=== PATIENT | female | born 1960 | race Caucasian/White ===

== ENCOUNTER → 2024-03-28 | Outpatient (CLI) | payer BC ==
--- NOTE | 2024-05-09 14:40 | WWHP ---
[facility] - HISTORY AND PHYSICAL The patient is a 63-year-old female seen in consultation for Dr. Hayden regarding left bloody nipple discharge. She had a bilateral mammogram performed on 06/09/2023 which was BI-RADS2. She had a left breast ultrasound on 02/12/2024 which showed some mild left duct ectasia. She states that approximately 2 weeks ago, she awoke with swelling of the left breast and some bloody nipple discharge. She had several courses of antibiotics. The swelling resolved; however, the nipple discharge continued. She states it occurs in the mornings and was initially red and is now dark in color. She has never had any surgery on her breasts. She denies any lumps, masses, or nodules of concern on either breast. CAFFEINE: 2 cups per day. NICOTINE: Negative. CHOCOLATE: Weekly. CONTROL PILLS/HORMONES: She used control pills for approximately 5 years in the remote past. FAMILY HISTORY: Mother, lung cancer, smoker. Sister, lung cancer, smoker. ENDOCRINE: Menarche, 14. G2, P3, twins. Breast-fed, positive. Menopause, 51. SOCIAL HISTORY: Nicotine, negative. Alcohol, rare. Drugs, negative. MEDICAL HISTORY: Hypothyroid. SURGICAL HISTORY: Two bladder suspensions. REVIEW OF SYSTEMS: HEENT: Glasses. BREASTS: As HPI. CARDIOVASCULAR: Negative. RESPIRATORY: Negative. GI: Negative. : Negative. MUSCULOSKELETAL: Negative. SKIN: Negative. NEUROLOGIC: Negative. PSYCH: Negative. ENDOCRINE: Hypothyroid. HEMATOLOGIC: Negative. ALLERGIES: Negative. PHYSICAL EXAMINATION: CONSTITUTIONAL: Normal. HEENT: Normal. NECK: Normal. RESPIRATORY: Lungs clear to auscultation. CARDIOVASCULAR: S1 and S2. No murmurs. ABDOMEN: Soft, nontender. SKIN: Normal. NEUROLOGIC: Normal. BREASTS: Bra size 38B. Ptosis, 2/3, bilateral. RIGHT BREAST: Fibrocystic disease. RIGHT AXILLA: No adenopathy of concern. LEFT BREAST: Fibrocystic disease. No nipple discharge on today's examination. LEFT AXILLA: No adenopathy of concern. IMPRESSION: Recent mastitis, left breast with bloody nipple discharge. No radiographic evidence to suggest the cause of the discharge. No discharge on today's examination. PLAN: The patient is given Hemoccult card to collect if she has bloody discharge and to bring it in for us to check. Consider breast MRI. The patient to follow up next week with Hemoccult card. We have discussed duct exploration, but at this time, she does not have any radiographic evidence to direct us nor anything on physical examination. We will await and see if she has continued bloody discharge. MMODL / IJN: [id number] /
== END ==
LOC: WWCWWP 11:39
PROVIDERS: ATTEND Surgery

== ENCOUNTER → 2024-05-09 | Outpatient (CLI) | payer BC ==
[2024-05-09 11:17] VITALS: BP 127/84; PULSE 60; RESP 17; TEMP 98
--- NOTE | 2024-05-09 11:29 | P.PN ---
Subjective Progress Note Date: 05/09/24 Principal diagnosis: nipple discharge Gi is a 63 year old female with nipple discharge from the left nipple. She had a guiac card given to her from which she collected fluid but this was guiac (-). During that the reagent did not properly react and she is given another guaiac card. On today's examination we attempt to get nipple discharge and nothing is present. She states however that the discharge does occur every morning and every night. It is dark brown in nature. She is given a another guaiac card she will collect this again tonight and will follow-up tomorrow. Objective - Vital Signs Vital signs: Vital Signs Temp 98 F 05/09/24 11:14 Pulse 60 05/09/24 11:14 Resp 17 05/09/24 11:14 BP 127/84 05/09/24 11:14 Pulse Ox 97 05/09/24 11:14 FiO2 Intake & Output 05/08/24 05/09/24 05/09/24 18:59 06:59 18:59 Weight 68.039 kg
== END ==
LOC: WWCWWP 09:59
PROVIDERS: ATTEND Surgery
DX: N64.52 Nipple discharge (principal)

== ENCOUNTER → 2024-07-04 | Outpatient (CLI) | payer BC ==
[2024-07-04 15:05] VITALS: BP 124/77; PULSE 83; RESP 16; TEMP 98.2
--- NOTE | 2024-07-04 15:41 | P.GSCN ---
History of Present Illness Consult date: 07/04/24 History of present illness: Gi is a 63 year old female seen in consultation for Dr. Hayden regarding left breast bloody nipple discharge on 03-28-2024. She had had a bilateral mammogram performed on 06-09-2023 which was BI-RADS 2. She had a left breast ultrasound on 02-12-2024 which showed some mild left duct ectasia. She stated that approximately 2 weeks prior she awoke with swelling of the left breast and some bloody nipple discharge. She had had several courses of antibiotics. The swelling resolved, however the discharge continued. She states that it occurred in the mornings as was initially red and dark in color. She had never had any surgery on her breast. She denied any lumps, masses, or nodules of concern in either breast. She subsequently was seen back on 05-09-2024 she had been given a guaiac card to collect fluid however the guaiac output was negative. There was concern that the reagent properly react and on the examination of that day and attempt to get nipple discharge did not reveal anything. She was given another guaiac card and told to follow-up. She subsequently underwent a bilateral repeat mammogram on 06-13-24. Right breast: Scattered areas of fibroglandular density no masses Left breast: 14 mm oval mass with microlobulated margins in the upper outer quadrant Targeted color Doppler of the left breast demonstrated a 14 x 11 mm hypoechoic mass with peripheral echogenic rim correlating to the mammographic abnormality There were loosely grouped amorphous calcifications spanning approximately 15 mm that were approximately 10 mm superior to the mass Impression: Was left breast 14 mm solid mass finding considered suspicious and ultrasound-guided needle core biopsy recommended. Loosely grouped amorphous calcifications in the upper outer quadrant considered suspicious and stereotactic guided biopsy of the left breast calcifications recommended She underwent a stereotactic core biopsy of area of concern in the left breast vein being the microcalcifications a titanium clip was inserted into the biopsy cavity An ultrasound-guided needle biopsy was then performed of the mass at the 1 o'clock position in the breast following which a mammotome by debra titanium clip was inserted into the cavity. The results revealed Left breast 1:00 6 cm from the nipple mass invasive ductal carcinoma grade 3; T 1.4cm N0M0ER+Pr-Her2? mass The patient states that approximately 2 months ago she began to feel a pea-sized area of nodularity in the upper outer quadrant of the left breast. The bloody nipple discharge was intermittent. left breast stero bipsy: G3ER+Pr-Her2? caffeine: 2 cups/day nictoine: _ chocolate: weekly BCP: 5 years in remote past Family History: mother: lung cancer sister: lung cancer [place] History: menarche: 14 , breat fed+, menopause: 51 Surgical History: two bladder suspensions hysterectomy took one ovary Medical HIstory: hypothyroid Social History: nicotine: none alcohol: none drugs: none Review of Systems - Constitutional Denies fever, Denies weight loss - EENT Eyes: denies blurred vision Ears: deny: decreased hearing, tinnitus Ears, nose, mouth and throat: Denies dysphagia - Breasts bilateral: as per HPI - Cardiovascular Denies chest pain, Denies shortness of breath - Respiratory Denies cough, Denies 7 - Gastrointestinal Reports as per HPI, Reports diarrhea - Genitourinary Genitourinary: Denies dysuria, Denies hematuria Menstruation: Reports post hysterectomy - Musculoskeletal Reports as per HPI - Integumentary Denies rash, Denies unusual bruising - Neurological Denies headaches, Denies syncope - Psychiatric Reports as per HPI - Endocrine Reports as per HPI - Hematologic/Lymphatic Denies easy bleeding, Denies easy bruising - Allergic/Immunologic Reports as per HPI Past Medical History History of Any Multi-Drug Resistant Organisms: None Reported Smoking Status: Never smoker Medications and Allergies Home Medications Medication Instructions Recorded Confirmed Type ALPRAZolam [Xanax] 0.25 mg PO DIRECTED PRN 07/04/24 07/04/24 History Levothyroxine Sodium [Synthroid] 75 mcg PO DAILY 07/04/24 07/04/24 History Omeprazole [PriLOSEC] 20 mg PO DAILY 07/04/24 07/04/24 History Oxybutynin Chloride [oxyBUTYnin 10 mg PO DAILY 07/04/24 07/04/24 History chloride ER] Allergies Allergy/AdvReac Type Severity Reaction Status Date / Time No Known Allergies Allergy Unverified 07/04/24 14:58 Surgical - Exam Vital Signs Temp Pulse Resp BP Pulse Ox 98.2 F 83 16 124/77 98 07/04/24 15:01 07/04/24 15:01 07/04/24 15:01 07/04/24 15:01 07/04/24 15:01 - General moderate distress - Eyes normal ocular movement - Neck trachea midline - Respiratory normal respiratory effort, clear to auscultation - Cardiovascular Rhythm: regular Heart Sounds: normal: S1, S2 - Abdomen Abdomen: soft, non tender, no guarding, no rigid, no rebound - Integumentary no rash, no abnormal pigmentation - Musculoskeletal normal gait, normal posture - Psychiatric oriented to time, oriented to person, oriented to place, speech is normal, memory intact Breast Exam: BRA: 38B Inspection: Ecchymosis left breast upper outer quadrant, bilateral grade 2 ptosis Palpation: Right breast: Multi positional exam fibrocystic breast changes Right axilla: No adenopathy of concern Left breast: Multi positional exam fullness upper outer quadrant approximately 3 x 2 cm in size with some ecchymosis with this may represent hematoma Left axilla: No adenopathy of concern Results recent mammogram, ultrasound, pathology report reviewed Assessment and Plan Assessment: Impression: 2 sites of invasive ductal carcinoma left breast which may be contiguous Plan: consider bilatera MRI present at tumor board CC: Dr Hayden
== END ==
LOC: WWCWWP 14:43
PROVIDERS: ATTEND Surgery
DX: C50.012 Malignant neoplasm of nipple and areola, left female breast (principal); R92.8 Other abnormal and inconclusive findings on diagnostic imaging of breast; R92.0 Mammographic microcalcification found on diagnostic imaging of breast; N60.42 Mammary duct ectasia of left breast

== ENCOUNTER → 2024-07-05 | Outpatient (CLI) | payer BC ==
[2024-07-05 10:08] VITALS: BP 139/99; PULSE 85; RESP 16; TEMP 98.5
== END ==
LOC: WWCWWP 08:52
PROVIDERS: ATTEND Surgery
DX: Z53.9 Procedure and treatment not carried out, unspecified reason (principal)

== ENCOUNTER → 2024-07-05 | Outpatient (CLI) | payer BC ==
--- NOTE | 2024-07-05 14:06 | USB ---
Reason for Exam: Known biopsy proven malignancy. Patient History: Breast cancer, left, age 63. Findings: The axilla of the left breast was scanned. Evaluation of the left axilla fails demonstrate evidence for pathologic-appearing adenopathy. Overall Assessment: Known biopsy proven malignancy, BI-RAD 6 Management: Surgical Consultation of both breasts. A clinical breast exam by your physician is recommended on an annual basis and results should be correlated with mammographic findings. This exam should not preclude additional follow-up of suspicious palpable abnormalities. Results were given to the patient verbally at the time of exam. [facility], , 07/05/2024 2:03 PM. Electronically signed and approved by: Chilango Coto M.D. Radiologis
--- NOTE | 2024-07-05 15:10 | P.PN ---
Subjective Progress Note Date: 07/05/24 Principal diagnosis: two sites of invasive ductal cancer left breast Gi is a 63 year old female seen in consultation for Dr. Hayden regarding left breast bloody nipple discharge on 03-28-2024. She had had a bilateral mammogram performed on 06-09-2023 which was BI-RADS 2. She had a left breast ultrasound on 02-12-2024 which showed some mild left duct ectasia. She stated that approximately 2 weeks prior she awoke with swelling of the left breast and some bloody nipple discharge. She had had several courses of antibiotics. The swelling resolved, however the discharge continued. She states that it occurred in the mornings as was initially red and dark in color. She had never had any surgery on her breast. She denied any lumps, masses, or nodules of concern in either breast. She subsequently was seen back on 05-09-2024 she had been given a guaiac card to collect fluid however the guaiac output was negative. There was concern that the reagent properly react and on the examination of that day and attempt to get nipple discharge did not reveal anything. She was given another guaiac card and told to follow-up. She subsequently underwent a bilateral repeat mammogram on 06-13-24. Right breast: Scattered areas of fibroglandular density no masses Left breast: 14 mm oval mass with microlobulated margins in the upper outer quadrant Targeted color Doppler of the left breast demonstrated a 14 x 11 mm hypoechoic mass with peripheral echogenic rim correlating to the mammographic abnormality There were loosely grouped amorphous calcifications spanning approximately 15 mm that were approximately 10 mm superior to the mass Impression: Was left breast 14 mm solid mass finding considered suspicious and ultrasound-guided needle core biopsy recommended. Loosely grouped amorphous calcifications in the upper outer quadrant considered suspicious and stereotactic guided biopsy of the left breast calcifications recommended She underwent a stereotactic core biopsy of area of concern in the left breast of the microcalcifications a titanium clip was inserted into the biopsy cavity An ultrasound-guided needle biopsy was then performed of the mass at the 1 o'clock position in the breast following which a mammotome by debra titanium clip was inserted into the cavity. The results revealed Left breast 1:00 6 cm from the nipple mass invasive ductal carcinoma grade 3; T 1.4cm N0M0ER+Pr-Her2? mass The patient states that approximately 2 months ago she began to feel a pea-sized area of nodularity in the upper outer quadrant of the left breast. The bloody nipple discharge was intermittent. left breast stero bipsy: invasive ductal cancer [id number]-Her2? Can return today for an ultrasound of the left axilla to rule out any abnormal lymph nodes. Ultrasound was performed on 07-05-2024 of the left axilla and personally reviewed and discussed with Dr. Borden from radiology. The examination failed to demonstrate evidence for any pathologic appearing adenopathy. Seen in conjunction with her and daughter for discussion of the above results. Radiograph from [facility] was personally reviewed and discussed with Dr. Zhou Turner and it was felt that the 2 areas which were biopsied in the left breast were 2 separate areas. This was discussed and reviewed with the radiologist and her daughter and and were also present to review the radiographs. Options for surgical treatment were again discussed. Secondary to the fact that both lesions are in proximity to each other bracketing could be performed with a lumpectomy. However at this time and is more interested in having a mastectomy. She has had genetic testing drawn implications of genetic testing were discussed with the patient and her family prior to blood being drawn. We are awaiting results of the genetic testing. The patient however states that irregardless of the genetic testing she would like to have a left mastectomy. She would prefer to have this over a lumpectomy. She understands that we are waiting for her HER2 results to come back. If those results were positive medical oncology may recommend neoadjuvant treatment. At this time the following has been recommended: 1. Await results of HER2 testing 2. Appointment medical oncology 3. Presentation of case at tumor board 4. The patient is going to be seen for a second opinion at [facility] today 5. The patient would like to have surgery of the left breast done as soon as possible and is not interested in immediate reconstruction if this would delay the timing of the surgery, the risk and benefits of the surgical procedure were discussed with the patient, her , and her daughter. Risk of mastectomy include but are not limited to bleeding, infection, reaction to the anesthetic. Discussed injection of the radiotracer in the periareolar area, and that if this did not travel injection of the blue dye tracer. Risk of the blue dye tracer may include necrosis of the skin. Risk of sentinel node biopsy/axillary node dissection include but are not limited to bleeding, infection, reaction to the anesthetic. There is a risk of decreased sensation to the inner arm, lymphedema, and injury to the thoracodorsal or long thoracic nerves which could result in winged scapula. The patient understands all of these things and depending on the recommendation from tumor board and her HER2/luis testing would like to proceed with a left mastectomy in the near future. Again she understands that she could be a candidate for neoadjuvant therapy shrinking of the lesion and a lumpectomy with radiation therapy.
== END | disposition home or self-care (01) ==
LOC: RADUSWWP 08:49
PROVIDERS: ATTEND Surgery
DX: N63.0 Unspecified lump in unspecified breast (principal); C50.412 Malignant neoplasm of upper-outer quadrant of left female breast; N64.52 Nipple discharge

== ENCOUNTER → 2024-07-10 | Outpatient (CLI) | payer BC ==
--- NOTE | 2024-07-18 12:53 | BMR ---
EXAM DATE: 07/10/2024 EXAM DESCRIPTION: MRI-Breast Bilat (W/WO Contrast) INDICATION: Breast cancer COMPARISON: Comparison was made to prior relevant imaging available in PACS TECHNIQUE: Multiplanar multisequence breast MRI was performed prior to and after administration of 7 mL of Gadavist intravenously. Post processing was performed utilizing a [employer] workstation. The technical portion of this study was performed at [facility] with radiological interpretation by [facility] radiology. FINDINGS: There is mild, symmetric background parenchymal enhancement in breasts that are composed of scattered fibroglandular tissue. RIGHT BREAST: Review of the dynamic contrast enhanced series shows no rapidly enhancing masses, suspicious enhancement patterns or other abnormalities. Slightly prominent ducts in the anterior depth of the breast with increased T1 signal suggestive of intraluminal proteinaceous debris (for example series 502, image 449 and series 601 image 177). The T2 weighted series show no abnormality. LEFT BREAST: Review of the dynamic contrast enhanced series shows combination of enhancing masses, non mass enhancement and enhancing ducts throughout the upper outer quadrant of the breast. For example: - a 2.0 x 1.7 x 2.7 cm enhancing mass with associated biopsy clip at 1-2 o'clock position mid depth - numerous surrounding satellite masses, for example a 1.5 x 1.1 cm (series 503, image 586). - irregular non mass enhancement extend throughout the upper outer quadrant at 1-2 o'clock position measuring up to 11 cm in length - there appears to be direct extension with enhancement of the nipple (series 503, image 498) In addition, there are two indeterminate masses in the left breast: - a 0.5 x 0.3 cm oval circumscribed at 6 o'clock position anterior depth (series 503, image 310) - a 0.6 x 0.4 cm oval circumscribed at 5 o'clock position mid depth (series 603, image 322) LYMPH NODES: No axillary or internal mammary lymphadenopathy. IMPRESSION: 1. Right breast: No MRI evidence of malignancy. 2. Left breast: - combination of enhancing masses, non mass enhancement and enhancing ducts throughout the upper outer quadrant with suggestion of nipple involvement compatible with malignancy. - two subcentimeter indeterminate masses in the left breast: at 5 and 6 o'clock position. If breast conserving therapy is considered, further evaluation with targeted ultrasound and biopsy if needed is recommended. OVERALL ASSESSMENT- BI-RADS 6 MTDD
== END | disposition home or self-care (01) ==
LOC: RADMRIMAIN 06:50
PROVIDERS: ATTEND Surgery
DX: C50.412 Malignant neoplasm of upper-outer quadrant of left female breast (principal); C50.411 Malignant neoplasm of upper-outer quadrant of right female breast
CPT/HCPCS: 77049; A9585